=== PATIENT | male | born 1940 | race Caucasian/White ===

== ENCOUNTER 2022-06-14 13:25 | Inpatient (IN) | payer OTHER, MEDICARE ==
[~2022-06-14] VITALS: Ht 170.2 cm; Wt 79.9 kg
[~2022-06-14 13:25] MED LIST: ALLO300 PO; AMLO10 PO; CYCL10 PO; DICL75ER PO; DUTA.5 PO; DYAZIDE 37.5-21 EACH PO; KLOR-CON M1010 MEQ PO; Ocuvite Lutein1 EACH PO; TAMS.4ER PO
[2022-06-14 13:47] LABS: BASOPHILS ABSOLUTE AUTO 0.03 K/mm3 (0.00-0.23); BASOPHILS PERCENT AUTO 0 % (0-2); EOSINOPHILS PERCENT AUTO 0 % (0-6); Hematocrit 42.2 % (37.0-53.0); Hemoglobin 13.9 g/dL (13.5-17.5); IMMATURE GRAN ABSOLUTE AUTO 0.06 K/mm3 (0.00-0.10); IMMATURE GRAN PERCENT AUTO 0 % (0-1); LYMPHOCYTES ABSOLUTE AUTO 0.68 K/mm3 (0.84-5.20); LYMPHOCYTES PERCENT AUTO 5 % (21-46); MONOCYTES ABSOLUTE AUTO 0.48 K/mm3 (0.16-1.47); MONOCYTES PERCENT AUTO 3 % (4-13); Mean Corpuscular HGB 29.1 pg (26.0-34.0); Mean Corpuscular HGB Conc 32.9 g/dL (31.5-36.5); Mean Corpuscular Volume 88 fL (80-100); Mean Platelet Volume 8.7 fL (9.1-12.4); NEUTROPHILS ABSOLUTE AUTO 12.68 K/mm3 (1.96-9.15); NEUTROPHILS PERCENT AUTO 91 % (41-73); Platelet Count 278 K/mm3 (150-400); RDW Coefficient Variation 13.7 % (11.7-14.2); RDW Standard Deviation 44.6 fL (35.1-46.3); Red Blood Cell Count 4.78 M/mm3 (4.30-5.90); White Blood Cell Count 13.93 K/mm3 (4.00-11.30)
[2022-06-14 14:01] LABS: International Normalized Ratio 1.01; Prothrombin Time Results 10.6 Sec (9.7-11.5)
[2022-06-14 14:13] LABS: Alanine Aminotransfer (ALT/SGP 31 U/L (12-78); Albumin, Blood 3.7 g/dL (3.4-5.0); Albumin/Globulin Ratio 1.3 (0.8-1.8); Alk Phos 127 U/L (50-136); Anion Gap 10 mmol/L (6-16); Aspartate Aminotrans (AST/SGOT 21 U/L (12-37); Bilirubin, Total 0.5 mg/dL (0.1-1.0); Blood Urea Nitrogen 15 mg/dL (8-24); Bun/Creatinine Ratio 15.2 (12.0-20.0); CO2, Blood 25 mmol/L (21-32); Chloride, Blood 108 mmol/L (98-108); Creatinine, Blood 0.99 mg/dL (0.60-1.20); Ethanol (Alcohol), Blood, Med <3 mg/dL; Globulin, Blood 2.9 g/dL (2.2-4.0); Glomerular Filtration Rate 77 (60-); Glucose, Blood 179 mg/dL (70-99); Potassium, Blood 3.1 mmol/L (3.5-5.5); Sodium, Blood 143 mmol/L (136-145); Total Protein, Blood 6.6 g/dL (6.4-8.2)
[2022-06-14 14:37] LABS: PO2 Arterial 143 mmHg (80-100); pH Blood Arterial 7.39 (7.35-7.45)
--- NOTE | 2022-06-14 22:09 | NUR ---
will continue on vent untill morning untill family can arive
--- NOTE | 2022-06-15 05:27 | NUR ---
END OF SHIFT SUMMARY THIS PT ARRIVED AT CHANGE OF SHIFT TO BE TRANSISTIONED TO COMFORT CARE.PT HAS LARGE ICH WITH UNCLE HERNIATION. APPON ASSESMENT THE PT NEROLOGICAL WAS TRIPPLE FLEXING BLE AND WITHDRAWING BUE. HIS RT PUPIL WAS 5 AND NON REACT LFT WAS 2 AND NONREACTIVE HE STLL HAD A COUGH NO GAG. HIS OTHER PUPIL HAS SINCE BLOWN AND PT IS JUST TRIPLE FLEXING BLE AND NOTHING IN UPPER EXTREMITIES. PT IS STILL BREATHING OVER VENT AND HAS A COUGH. THE PLAN IS TO COMPATIONATLY EXTUBATE THIS MORNIG WHEN ALL FAMILY CAN BE PRESENT. MY FOCUS HAS BEEN EDUCATION TO FAMILY AND WHAT THE PROCESS WILL LOOK LIKE AND UNDERSTANDING EXPECTATIONS.
--- NOTE | 2022-06-15 07:46 | NUR ---
Assumed care Report received from PETER Deng. Pt resting in bed, ventilated. Pt's face appears relaxed, tolerating vent. Pt's marc at the bedside. Confirmed with her that plan is to extubate to comfort care when other family arrives. She states unknown timing on family's arrival as they aren't answering the phone yet. Pt's marc is very tearful, comfort provided. Offered duplex trimmer services and she accepted. Mold Blower Aureliano in the room with pt and marc currently. Continue to monitor.
--- NOTE | 2022-06-15 08:03 | NUR ---
Upon receiving a call from RN Machinist Class B Ivan, I visit pt. Pt has family present and request prayer and also that a Dice Spotter would be called in. I visit with Julia and conduct a life review of pt. She explains about the shock of the incident and the family's reaction. She tells me that 2 dtrs and [address] on their way to the hospital and once they arrive they will extubate the pt. I provide therapeutic listening, anticipatory grief support and prayer. Julia responds well and shows signs of being comforted. I then step outside the and call [facility] and Father Jordan agrees to come in NADEGE. I will continue to remain available
--- NOTE | 2022-06-15 10:53 | NUR ---
pt on vent no signs of discomfort. peist and chaplian have been in. quilt placed. order from physician for ativan for possible seizures or aggitation at withdrawl of life support. will continue to monitor.
--- NOTE | 2022-06-15 13:42 | NUR ---
COMFORT CARE ALL OF PT'S FAMILY ARRIVED AND STATED THEY WERE READY TO EXTUBATE PT TO FULL COMFORT CARE. WHAT TO EXPECT WHEN EXTUBATING PT TO COMFORT CARE DISCUSSED WITH FAMILY. ROSE LALA NOTIFIED AND CHAPLAIN RIDDHI, NOTIFIED AND CAME TO THE BEDSIDE. PT MEDICATED WITH MORPHINE AND ATIVAN PRIOR TO EXTUBATION. PT EXTUBATED AT 1330. PT HAD SNORING RESPIRATIONS AT ABOUT A RATE OF 22 FOR ABOUT 2 MINUTES BEFORE PT BECAME APNEIC. PT'S HR WENT INTO ASYSTOLE AT 1335. CONFIEMED TOD VIA AUSCULTATION, LACK OF PUPILLARY REFLEX, NO PULSE. CONFRIMED BY PETER BARTLETT. FAMILY AT THE BEDSIDE INFORMED THROUGHOUT.
--- NOTE | 2022-06-15 13:55 | NUR ---
Spiritual care visit conducted. Just prior to pt being extubated, RN Marilyn informs me of the upcoming procedure. The pt's rm is full of family, I provide a prayer, RT Micha extubates pt and within minutes pt expires at 1335. Family grieve appropriately. I provide grief support. Family show signs of being comforted.
--- NOTE | 2022-06-15 15:38 | NUR ---
MTS HAS TAKEN PATIENT OUT OF UNIT. ALL BELONGINGS WERE SENT HOME WITH PATIENT FAMILY.
== END 2022-06-15 15:00 | DRG 951 ==
LOC: ER 13:25 → ERHOLD 17:17 → ICUE 17:17
PROVIDERS: Emergency Medicine; ADMIT Internal Medicine
PROC: 0BH17EZ Insertion of Endotracheal Airway into Trachea, Via Natural or Artificial Opening (ICD-10-PCS; principal; 2022-06-14)
PROC: 5A1935Z Respiratory Ventilation, Less than 24 Consecutive Hours (ICD-10-PCS; 2022-06-14)
DX: Z51.5 Encounter for palliative care (principal); I61.9 Nontraumatic intracerebral hemorrhage, unspecified; G93.5 Compression of brain; I10 Essential (primary) hypertension; N40.0 Benign prostatic hyperplasia without lower urinary tract symptoms; M10.9 Gout, unspecified; M19.90 Unspecified osteoarthritis, unspecified site; Z96.612 Presence of left artificial shoulder joint; Z66 Do not resuscitate; Z96.652 Presence of left artificial knee joint; Z98.890 Other specified postprocedural states; Z98.52 Vasectomy status; Z87.891 Personal history of nicotine dependence; V89.2XXA Person injured in unspecified motor-vehicle accident, traffic, initial encounter; Z79.899 Other long term (current) drug therapy
CPT/HCPCS: 31500; 36600; 70450; 71045; 71260; 72125; 74177; 80053; 82803; 83605; 83690; 85025; 85610; 86850; 86900; 86901; 93005; 93010; 94002; 94003; 94762; 99291-25; G0390; G0480; J0330; J2060; J2270; J2704; L0160; Q9967